=== PATIENT | female | born 1955 | race Caucasian/White ===

== ENCOUNTER 2018-03-25 07:31 | Day surgery (SDC) | payer BC ==
[2018-03-25] MEDS: SOD CHLORIDE 0.9% 500 ML (09:16)
[2018-03-25] MEDS: CLINDAMYCIN 600 MG/D5W (PMX) 50 ML IVPB (10:00)
[2018-03-25] MEDS: SOD CHLORIDE 0.9% 1,000 ML IV (10:00)
[2018-03-25] MEDS: DIPHENHYDRAMINE 50 MG INJ (10:30)
[2018-03-25] MEDS: ONDANSETRON 4 MG INJ (10:30)
[2018-03-25] MEDS: HEPARIN 1000 UNITS/ML 10 ML INJ (10:35)
[2018-03-25] MEDS: LIDOCAINE 1%/EPI 30 ML INJ (10:44)
[2018-03-25] MEDS: FENTAnyl 50 MCG/ML VIAL (10:45)
[2018-03-25] MEDS: MIDAZOLAM 1 MG/ML 2 ML INJ (10:46)
[2018-03-25] MEDS: POLYMYXIN/BACITRACIN 1L IRRIG IRR (11:00)
== END 2018-03-25 14:00 | disposition home or self-care (01) ==
LOC: SDS 07:31
DX: G70.00 Myasthenia gravis without (acute) exacerbation (principal)
CPT/HCPCS: 36561; 76942

== ENCOUNTER 2018-04-08 12:18 | Emergency (ER) | payer BC ==
[2018-04-08] MEDS ORDERED: KETOROLAC 15 MG INJ IV (12:58)
[2018-04-08] MEDS ORDERED: ONDANSETRON 4 MG INJ IV (12:58)
[2018-04-08] MEDS ORDERED: SOD CHLORIDE 0.9% 1,000 ML IV (12:58)
[2018-04-08] MEDS ORDERED: CA CHLORIDE 10% 10 ML SYRINGE (13:21)
[2018-04-08 13:27] LABS: ADD MAN DIFF? NO
[2018-04-08 13:31] LABS: BASOPHILS % 0.4 % (0.0-2.0); EOSINOPHILS # 0.1 10^3/ul (0.0-0.5); EOSINOPHILS % 2.2 % (0.0-7.0); HEMATOCRIT 38.4 % (37.0-47.0); HEMOGLOBIN 12.2 g/dl (12.0-16.0); LYMPHOCYTES % 35.7 % (15.0-51.0); MEAN CORPUSCULAR HEMOGLOBIN 27.2 pg (29.0-33.0); MEAN CORPUSCULAR HGB CONC 31.8 g/dl (32.0-37.0); MEAN CORPUSCULAR VOLUME 85.5 fl (82.0-101.0); MEAN PLATELET VOLUME 10.3 fl (7.4-10.4); MONOCYTE # 0.5 10^3/ul (0.3-0.9); MONOCYTES % 8.2 % (0.0-11.0); NEUTROPHIL # 2.9 10^3/ul (1.6-7.5); NEUTROPHILS % 53.3 % (39.0-77.0); PLATELET COUNT 387 10^3/UL (140-415); RED BLOOD COUNT 4.49 10^6/ul (4.20-5.40); RED CELL DISTRIBUTION WIDTH 15.2 % (11.5-14.5)
[2018-04-08 13:31] LABS: WHITE BLOOD COUNT 5.5 10^3/ul (4.8-10.8)
[2018-04-08 13:36] LABS: ADD UMIC YES; UR ASCORBIC ACID NEGATIVE (NEGATIVE); UR BACTERIA FEW /HPF (NONE SEEN); UR BILIRUBIN (Dip) NEGATIVE (NEGATIVE); UR BLOOD (Dip) 2+ mg/dL (NEGATIVE); UR CLARITY SLIGHTLY CLOUDY (CLEAR); UR COLOR YELLOW (YELLOW); UR GLUCOSE (Dip) NEGATIVE (NEGATIVE); UR KETONES (Dip) NEGATIVE (NEGATIVE); UR LEUKOCYTE ESTERASE (Dip) NEGATIVE Leu/ul (NEGATIVE); UR MUCUS FEW /HPF (NONE SEEN); UR NITRITE (Dip) NEGATIVE (NEGATIVE); UR RBC 3 /HPF (0-5); UR SPECIFIC GRAVITY (Dip) 1.016 (1.003-1.030); UR SQUAMOUS EPITHELIAL CELL FEW /HPF (FEW); UR TOTAL PROTEIN (Dip) NEGATIVE (NEGATIVE); UR UROBILINOGEN (Dip) NEGATIVE (NEGATIVE); UR WBC 2 /HPF (0-5)
[2018-04-08 13:53] LABS: ALANINE AMINOTRANSFERASE 30 IU/L (13-69); ALBUMIN 4.4 g/dl (3.3-4.9); ALBUMIN/GLOBULIN RATIO 1.07; ALKALINE PHOSPHATASE 89 IU/L (42-121); ANION GAP 13 (8-16); ASPARTATE AMINO TRANSFERASE 26 IU/L (15-46); BILIRUBIN,INDIRECT 0.2 mg/dl (0-1.1); BILIRUBIN,TOTAL 0.2 mg/dl (0.2-1.3); BLOOD UREA NITROGEN 10 mg/dl (7-20); CALCIUM 9.1 mg/dl (8.4-10.2); CARBON DIOXIDE 29 mmol/L (21-31); CHLORIDE 103 mmol/L (97-110); CREATININE 0.74 mg/dl (0.44-1.00); GLUCOSE 100 mg/dl (70-220); LIPASE 111 U/L (23-300); POTASSIUM 3.8 mmol/L (3.5-5.1); SODIUM 141 mmol/L (135-144); TOTAL PROTEIN 8.5 g/dl (6.1-8.1)
[2018-04-08] MEDS ORDERED: morphine 4 MG/ML VIAL (14:25)
[2018-04-08] MEDS: CEPHALEXIN 500 MG CAP PO (14:42)
[2018-04-08] MEDS: OXYCODONE/ACETAMINOPHEN (5/325) TAB PO (14:42)
[2018-04-08] MEDS: ONDANSETRON (ODT) 4 MG TAB ODT (14:42)
== END 2018-04-08 16:34 | disposition home or self-care (01) ==
LOC: E/R 12:18
DX: S76.211A Strain of adductor muscle, fascia and tendon of right thigh, initial encounter (principal); K46.9 Unspecified abdominal hernia without obstruction or gangrene; N30.00 Acute cystitis without hematuria; I25.10 Atherosclerotic heart disease of native coronary artery without angina pectoris; X58.XXXA Exposure to other specified factors, initial encounter; Y92.9 Unspecified place or not applicable; Z79.82 Long term (current) use of aspirin; Z87.891 Personal history of nicotine dependence
CPT/HCPCS: 36415; 80053; 81001; 83690; 85025; 87086; 99283-25

== ENCOUNTER 2018-05-20 01:26 | Inpatient (IN) | payer BC ==
[2018-05-20] MEDS ORDERED: NITROGLYCERIN (SL) 0.4 MG TAB SL (04:00)
[2018-05-20] MEDS ORDERED: DOCUSATE SODIUM 250 MG CAP PO (04:00)
[2018-05-20] MEDS: CIPROFLOXACIN 400MG/D5W 200 ML IVPB (04:26)
[2018-05-20] MEDS: SOD CHLORIDE 0.9% 1,000 ML IV ×2 (04:26→17:13)
[2018-05-20] MEDS: PANTOPRAZOLE (EC) 40 MG TAB PO ×2 (05:31→05:32)
[2018-05-20] MEDS: IBUPROFEN 600 MG TAB PO ×5 (05:31→22:29)
[2018-05-20] MEDS: metroNIDAZOLE 500 MG/NS (PMX) 100 ML IVPB ×3 (05:31→22:30)
[2018-05-20 06:33] LABS: ADD MAN DIFF? NO
[2018-05-20 06:42] LABS: BASOPHILS % 0.4 % (0.0-2.0); EOSINOPHILS # 0.4 10^3/ul (0.0-0.5); EOSINOPHILS % 5.6 % (0.0-7.0); HEMATOCRIT 32.6 % (37.0-47.0); HEMOGLOBIN 10.3 g/dl (12.0-16.0); LYMPHOCYTES % 28.4 % (15.0-51.0); MEAN CORPUSCULAR HEMOGLOBIN 27.5 pg (29.0-33.0); MEAN CORPUSCULAR HGB CONC 31.6 g/dl (32.0-37.0); MEAN CORPUSCULAR VOLUME 86.9 fl (82.0-101.0); MEAN PLATELET VOLUME 10.6 fl (7.4-10.4); MONOCYTE # 0.8 10^3/ul (0.3-0.9); MONOCYTES % 11.3 % (0.0-11.0); NEUTROPHIL # 3.8 10^3/ul (1.6-7.5); PLATELET COUNT 297 10^3/UL (140-415); RED BLOOD COUNT 3.75 10^6/ul (4.20-5.40)
[2018-05-20 07:32] LABS: ALANINE AMINOTRANSFERASE 23 IU/L (13-69); ALBUMIN 3.7 g/dl (3.3-4.9); ALKALINE PHOSPHATASE 85 IU/L (42-121); ANION GAP 14 (8-16); ASPARTATE AMINO TRANSFERASE 18 IU/L (15-46); BILIRUBIN,INDIRECT 0.4 mg/dl (0-1.1); BILIRUBIN,TOTAL 0.4 mg/dl (0.2-1.3); BLOOD UREA NITROGEN 12 mg/dl (7-20); CALCIUM 8.7 mg/dl (8.4-10.2); CARBON DIOXIDE 25 mmol/L (21-31); CHLORIDE 105 mmol/L (97-110); CREATININE 0.82 mg/dl (0.44-1.00); GLUCOSE 114 mg/dl (70-220); POTASSIUM 3.8 mmol/L (3.5-5.1); SODIUM 140 mmol/L (135-144); TOTAL PROTEIN 7.4 g/dl (6.1-8.1)
[2018-05-20] MEDS: MYCOPHENOLATE 250 MG CAP PO ×2 (08:10→20:14)
[2018-05-20] MEDS: BUPROPION (XL) 150 MG TAB PO (08:10)
[2018-05-20] MEDS: METOPROLOL (XL) 25 MG TAB PO ×2 (08:11→20:14)
[2018-05-20] MEDS: VENLAFAXINE (XR) 75 MG CAP PO (08:30)
[2018-05-20] MEDS: NON-FORMULARY/PATIENT OWN MED (Linaclotide (Linzess) 145 MCG) XX (13:53)
[2018-05-20] MEDS: morphine 2 MG INJ IV (16:10)
[2018-05-20] MEDS: ATORVASTATIN 20 MG TAB PO (20:14)
[2018-05-20] MEDS: TAMSULOSIN (SR) 0.4 MG CAP PO (20:14)
[2018-05-20] MEDS: ZOLPIDEM 5 MG TAB PO (22:36)
[2018-05-21] MEDS: CIPROFLOXACIN 400MG/D5W 200 ML IVPB (03:38)
[2018-05-21] MEDS: IBUPROFEN 600 MG TAB PO (05:59)
[2018-05-21] MEDS: metroNIDAZOLE 500 MG/NS (PMX) 100 ML IVPB ×3 (06:08→21:51)
[2018-05-21] MEDS: PANTOPRAZOLE (EC) 40 MG TAB PO (06:08)
[2018-05-21 06:13] LABS: ADD MAN DIFF? NO
[2018-05-21 06:21] LABS: WHITE BLOOD COUNT 5.4 10^3/ul (4.8-10.8)
[2018-05-21 06:21] LABS: BASOPHILS % 0.4 % (0.0-2.0); EOSINOPHILS # 0.3 10^3/ul (0.0-0.5); EOSINOPHILS % 6.1 % (0.0-7.0); HEMATOCRIT 30.3 % (37.0-47.0); HEMOGLOBIN 9.7 g/dl (12.0-16.0); LYMPHOCYTES # 1.8 10^3/ul (0.8-2.9); LYMPHOCYTES % 33.7 % (15.0-51.0); MEAN CORPUSCULAR HEMOGLOBIN 27.6 pg (29.0-33.0); MEAN CORPUSCULAR VOLUME 86.1 fl (82.0-101.0); MEAN PLATELET VOLUME 10.4 fl (7.4-10.4); MONOCYTE # 0.5 10^3/ul (0.3-0.9); MONOCYTES % 8.9 % (0.0-11.0); NEUTROPHIL # 2.7 10^3/ul (1.6-7.5); NEUTROPHILS % 50.7 % (39.0-77.0); PLATELET COUNT 283 10^3/UL (140-415); RED BLOOD COUNT 3.52 10^6/ul (4.20-5.40)
[2018-05-21] MEDS: SOD CHLORIDE 0.9% 1,000 ML IV ×2 (06:40→13:15)
[2018-05-21 06:54] LABS: ANION GAP 13 (8-16); BLOOD UREA NITROGEN 11 mg/dl (7-20); CALCIUM 8.5 mg/dl (8.4-10.2); CARBON DIOXIDE 26 mmol/L (21-31); CHLORIDE 107 mmol/L (97-110); CREATININE 0.73 mg/dl (0.44-1.00); GLUCOSE 88 mg/dl (70-220); POTASSIUM 3.5 mmol/L (3.5-5.1); SODIUM 142 mmol/L (135-144)
[2018-05-21 07:21] LABS: ADD UMIC YES; UR ASCORBIC ACID NEGATIVE (NEGATIVE); UR BACTERIA FEW /HPF (NONE SEEN); UR BILIRUBIN (Dip) NEGATIVE (NEGATIVE); UR BLOOD (Dip) 1+ mg/dL (NEGATIVE); UR CLARITY SLIGHTLY CLOUDY (CLEAR); UR COLOR YELLOW (YELLOW); UR GLUCOSE (Dip) NEGATIVE (NEGATIVE); UR KETONES (Dip) TRACE mg/dL (NEGATIVE); UR LEUKOCYTE ESTERASE (Dip) 1+ Leu/ul (NEGATIVE); UR MUCUS FEW /HPF (NONE SEEN); UR NITRITE (Dip) NEGATIVE (NEGATIVE); UR RBC 5 /HPF (0-5); UR SPECIFIC GRAVITY (Dip) 1.023 (1.003-1.030); UR SQUAMOUS EPITHELIAL CELL FEW /HPF (FEW); UR TOTAL PROTEIN (Dip) NEGATIVE (NEGATIVE); UR UROBILINOGEN (Dip) NEGATIVE (NEGATIVE); UR WBC 5 /HPF (0-5)
[2018-05-21] MEDS: MYCOPHENOLATE 250 MG CAP PO ×2 (08:32→21:53)
[2018-05-21] MEDS: BUPROPION (XL) 150 MG TAB PO (08:32)
[2018-05-21] MEDS: VENLAFAXINE (XR) 75 MG CAP PO (08:33)
[2018-05-21] MEDS: METOPROLOL (XL) 25 MG TAB PO ×2 (08:33→22:00)
[2018-05-21] MEDS: LINACLOTIDE 145 MG PO (10:56)
[2018-05-21] MEDS: ACETAMINOPHEN 325 MG TAB PO (14:30)
[2018-05-21] MEDS: TAMSULOSIN (SR) 0.4 MG CAP PO (21:51)
[2018-05-21] MEDS: ATORVASTATIN 20 MG TAB PO (21:51)
[2018-05-21] MEDS ORDERED: morphine LIQ (10 MG/5 ML) CUP PO (22:00)
[2018-05-21] MEDS: DIPHENHYDRAMINE 50 MG INJ IV (22:58)
[2018-05-21] MEDS: ZOLPIDEM 5 MG TAB PO (23:07)
[2018-05-21] MEDS: PATIENT'S OWN MEDICATION PO (23:11)
[2018-05-22] MEDS: HYDROCODONE/APAP (5/325) TAB PO ×2 (00:18→11:43)
[2018-05-22] MEDS: CIPROFLOXACIN 400MG/D5W 200 ML IVPB (04:35)
[2018-05-22] MEDS: SOD CHLORIDE 0.9% 1,000 ML IV ×3 (04:35→21:55)
[2018-05-22] MEDS: metroNIDAZOLE 500 MG/NS (PMX) 100 ML IVPB ×3 (06:05→21:53)
[2018-05-22] MEDS: PANTOPRAZOLE (EC) 40 MG TAB PO (06:05)
[2018-05-22] MEDS: MYCOPHENOLATE 250 MG CAP PO ×2 (08:44→21:52)
[2018-05-22] MEDS: VENLAFAXINE (XR) 75 MG CAP PO (08:44)
[2018-05-22] MEDS: PATIENT'S OWN MEDICATION PO ×2 (08:44→21:53)
[2018-05-22] MEDS: BUPROPION (XL) 150 MG TAB PO (08:44)
[2018-05-22] MEDS: METOPROLOL (XL) 25 MG TAB PO ×2 (08:45→21:53)
[2018-05-22 14:24] LABS: ADD UMIC YES; UR ASCORBIC ACID NEGATIVE (NEGATIVE); UR BACTERIA FEW /HPF (NONE SEEN); UR BILIRUBIN (Dip) NEGATIVE (NEGATIVE); UR BLOOD (Dip) 1+ mg/dL (NEGATIVE); UR CLARITY CLEAR (CLEAR); UR COLOR YELLOW (YELLOW); UR GLUCOSE (Dip) NEGATIVE (NEGATIVE); UR KETONES (Dip) NEGATIVE (NEGATIVE); UR LEUKOCYTE ESTERASE (Dip) 1+ Leu/ul (NEGATIVE); UR NITRITE (Dip) NEGATIVE (NEGATIVE); UR RBC 2 /HPF (0-5); UR SPECIFIC GRAVITY (Dip) 1.011 (1.003-1.030); UR SQUAMOUS EPITHELIAL CELL FEW /HPF (FEW); UR TOTAL PROTEIN (Dip) NEGATIVE (NEGATIVE); UR UROBILINOGEN (Dip) NEGATIVE (NEGATIVE); UR WBC 3 /HPF (0-5)
[2018-05-22] MEDS: ATORVASTATIN 20 MG TAB PO (21:52)
[2018-05-22] MEDS: TAMSULOSIN (SR) 0.4 MG CAP PO (21:52)
[2018-05-23] MEDS: CIPROFLOXACIN 400MG/D5W 200 ML IVPB (04:09)
[2018-05-23] MEDS: metroNIDAZOLE 500 MG/NS (PMX) 100 ML IVPB ×3 (05:50→21:19)
[2018-05-23] MEDS: PANTOPRAZOLE (EC) 40 MG TAB PO (05:50)
[2018-05-23] MEDS: HYDROCODONE/APAP (5/325) TAB PO (05:52)
[2018-05-23 06:05] LABS: ADD MAN DIFF? NO
[2018-05-23 06:18] LABS: WHITE BLOOD COUNT 4.5 10^3/ul (4.8-10.8)
[2018-05-23 06:18] LABS: BASOPHILS % 0.4 % (0.0-2.0); EOSINOPHILS # 0.3 10^3/ul (0.0-0.5); EOSINOPHILS % 6.5 % (0.0-7.0); HEMATOCRIT 31.5 % (37.0-47.0); HEMOGLOBIN 10.1 g/dl (12.0-16.0); LYMPHOCYTES # 1.7 10^3/ul (0.8-2.9); LYMPHOCYTES % 37.3 % (15.0-51.0); MEAN CORPUSCULAR HEMOGLOBIN 27.3 pg (29.0-33.0); MEAN CORPUSCULAR HGB CONC 32.1 g/dl (32.0-37.0); MEAN CORPUSCULAR VOLUME 85.1 fl (82.0-101.0); MEAN PLATELET VOLUME 10.9 fl (7.4-10.4); MONOCYTE # 0.6 10^3/ul (0.3-0.9); MONOCYTES % 12.6 % (0.0-11.0); NEUTROPHIL # 1.9 10^3/ul (1.6-7.5); PLATELET COUNT 340 10^3/UL (140-415); RED CELL DISTRIBUTION WIDTH 14.6 % (11.5-14.5)
[2018-05-23] MEDS: PATIENT'S OWN MEDICATION PO ×2 (09:00→22:04)
[2018-05-23] MEDS: VENLAFAXINE (XR) 75 MG CAP PO (09:47)
[2018-05-23] MEDS: MYCOPHENOLATE 250 MG CAP PO ×2 (09:47→21:09)
[2018-05-23] MEDS: BUPROPION (XL) 150 MG TAB PO (09:48)
[2018-05-23] MEDS: METOPROLOL (XL) 25 MG TAB PO ×2 (09:48→21:10)
[2018-05-23] MEDS: SOD CHLORIDE 0.9% 1,000 ML IV ×2 (12:00→13:32)
[2018-05-23] MEDS: ATORVASTATIN 20 MG TAB PO (21:10)
[2018-05-23] MEDS: TAMSULOSIN (SR) 0.4 MG CAP PO (21:10)
[2018-05-23] MEDS: ZOLPIDEM 5 MG TAB PO (21:25)
[2018-05-24] MEDS: SOD CHLORIDE 0.9% 1,000 ML IV ×2 (01:17→15:26)
[2018-05-24] MEDS: CIPROFLOXACIN 400MG/D5W 200 ML IVPB (04:20)
[2018-05-24] MEDS: PANTOPRAZOLE (EC) 40 MG TAB PO (05:21)
[2018-05-24] MEDS: metroNIDAZOLE 500 MG/NS (PMX) 100 ML IVPB ×3 (05:22→21:08)
[2018-05-24 05:46] LABS: ADD MAN DIFF? NO
[2018-05-24 05:54] LABS: WHITE BLOOD COUNT 4.7 10^3/ul (4.8-10.8)
[2018-05-24 05:54] LABS: BASOPHILS % 0.6 % (0.0-2.0); EOSINOPHILS # 0.3 10^3/ul (0.0-0.5); EOSINOPHILS % 5.6 % (0.0-7.0); HEMATOCRIT 32.1 % (37.0-47.0); HEMOGLOBIN 10.3 g/dl (12.0-16.0); LYMPHOCYTES # 2.1 10^3/ul (0.8-2.9); MEAN CORPUSCULAR HEMOGLOBIN 27.3 pg (29.0-33.0); MEAN CORPUSCULAR HGB CONC 32.1 g/dl (32.0-37.0); MEAN CORPUSCULAR VOLUME 85.1 fl (82.0-101.0); MEAN PLATELET VOLUME 10.7 fl (7.4-10.4); MONOCYTE # 0.6 10^3/ul (0.3-0.9); MONOCYTES % 12.2 % (0.0-11.0); NEUTROPHIL # 1.7 10^3/ul (1.6-7.5); NEUTROPHILS % 37.4 % (39.0-77.0); PLATELET COUNT 352 10^3/UL (140-415); RED BLOOD COUNT 3.77 10^6/ul (4.20-5.40); RED CELL DISTRIBUTION WIDTH 14.7 % (11.5-14.5)
[2018-05-24 06:36] LABS: ANION GAP 11 (8-16); BLOOD UREA NITROGEN 7 mg/dl (7-20); CALCIUM 8.8 mg/dl (8.4-10.2); CARBON DIOXIDE 26 mmol/L (21-31); CHLORIDE 109 mmol/L (97-110); GLUCOSE 113 mg/dl (70-220); POTASSIUM 3.3 mmol/L (3.5-5.1); SODIUM 143 mmol/L (135-144)
[2018-05-24] MEDS: BUPROPION (XL) 150 MG TAB PO (09:49)
[2018-05-24] MEDS: VENLAFAXINE (XR) 75 MG CAP PO (09:49)
[2018-05-24] MEDS: MYCOPHENOLATE 250 MG CAP PO ×2 (09:49→21:08)
[2018-05-24] MEDS: METOPROLOL (XL) 25 MG TAB PO ×2 (09:50→21:09)
[2018-05-24] MEDS: POTASSIUM CHLORIDE (SR) 20 MEQ TAB PO (17:27)
[2018-05-24] MEDS: TAMSULOSIN (SR) 0.4 MG CAP PO (21:08)
[2018-05-24] MEDS: ZOLPIDEM 5 MG TAB PO (21:08)
[2018-05-24] MEDS: ATORVASTATIN 20 MG TAB PO (21:08)
[2018-05-24] MEDS: PATIENT'S OWN MEDICATION PO (21:09)
[2018-05-25] MEDS: CIPROFLOXACIN 400MG/D5W 200 ML IVPB (03:45)
[2018-05-25] MEDS: SOD CHLORIDE 0.9% 1,000 ML IV ×2 (04:00→11:12)
[2018-05-25] MEDS: metroNIDAZOLE 500 MG/NS (PMX) 100 ML IVPB ×2 (05:31→14:20)
[2018-05-25] MEDS: PANTOPRAZOLE (EC) 40 MG TAB PO (05:31)
[2018-05-25 06:58] LABS: ALANINE AMINOTRANSFERASE 32 IU/L (13-69); ALBUMIN 3.5 g/dl (3.3-4.9); ALBUMIN/GLOBULIN RATIO 1.12; ALKALINE PHOSPHATASE 63 IU/L (42-121); ANION GAP 14 (8-16); ASPARTATE AMINO TRANSFERASE 35 IU/L (15-46); BILIRUBIN,INDIRECT 0.1 mg/dl (0-1.1); BILIRUBIN,TOTAL 0.1 mg/dl (0.2-1.3); BLOOD UREA NITROGEN 10 mg/dl (7-20); CALCIUM 8.9 mg/dl (8.4-10.2); CARBON DIOXIDE 28 mmol/L (21-31); CHLORIDE 103 mmol/L (97-110); CREATININE 0.71 mg/dl (0.44-1.00); GLUCOSE 102 mg/dl (70-220); POTASSIUM 3.4 mmol/L (3.5-5.1); SODIUM 142 mmol/L (135-144); TOTAL PROTEIN 6.6 g/dl (6.1-8.1)
[2018-05-25] MEDS: METOPROLOL (XL) 25 MG TAB PO (08:49)
[2018-05-25] MEDS: MYCOPHENOLATE 250 MG CAP PO (08:49)
[2018-05-25] MEDS: VENLAFAXINE (XR) 75 MG CAP PO (08:50)
[2018-05-25] MEDS: BUPROPION (XL) 150 MG TAB PO (08:50)
[2018-05-25] MEDS: POTASSIUM CHLORIDE (SR) 20 MEQ TAB PO (12:10)
== END 2018-05-25 18:25 | disposition home or self-care (01) | DRG 392 ==
LOC: MS3 01:26 → PP2 20:39
DX: K57.32 Diverticulitis of large intestine without perforation or abscess without bleeding (principal); G70.00 Myasthenia gravis without (acute) exacerbation; R33.9 Retention of urine, unspecified; E66.9 Obesity, unspecified; Z68.35 Body mass index [BMI] 35.0-35.9, adult; I10 Essential (primary) hypertension; E78.5 Hyperlipidemia, unspecified; F32.9 Major depressive disorder, single episode, unspecified; K44.9 Diaphragmatic hernia without obstruction or gangrene; E87.6 Hypokalemia; Z79.82 Long term (current) use of aspirin
CPT/HCPCS: 80048; 80053; 81001; 85025; 87086

== ENCOUNTER 2018-06-07 15:48 | Emergency (ER) | payer BC ==
[2018-06-07] MEDS: OXYCODONE/ACETAMINOPHEN (5/325) TAB PO (17:11)
[2018-06-07 17:18] LABS: URINE PH (Dip) POC 5.5 (5.0-8.5)
[2018-06-07 17:18] LABS: URINE BLOOD (Dip) POC 2+ (NEGATIVE); URINE GLUCOSE (Dip) POC Negative (NEGATIVE); URINE KETONES (Dip) POC Trace (NEGATIVE); URINE LEUKOCYTE EST (Dip) POC 1+ (NEGATIVE); URINE NITRITE (Dip) POC Negative (NEGATIVE); URINE TOTAL PROTEIN POC Negative (NEGATIVE)
== END 2018-06-07 18:21 | disposition home or self-care (01) ==
LOC: E/R 15:48
DX: M54.16 Radiculopathy, lumbar region (principal); Z79.82 Long term (current) use of aspirin
CPT/HCPCS: 81003; 99283

== ENCOUNTER 2018-08-26 09:22 | Day surgery (SDC) | payer BC ==
[~2018-08-26 09:22] MED LIST: VANCOMYCIN 2 GM in SOD CHLORIDE 0.9% 500 ML IVPB
[2018-08-26 10:28] LABS: ADD MAN DIFF? NO
[2018-08-26 10:32] LABS: BASOPHILS % 0.4 % (0.0-2.0); EOSINOPHILS # 0.2 10^3/ul (0.0-0.5); EOSINOPHILS % 4.5 % (0.0-7.0); HEMATOCRIT 34.1 % (37.0-47.0); HEMOGLOBIN 10.9 g/dl (12.0-16.0); LYMPHOCYTES % 41.4 % (15.0-51.0); MEAN CORPUSCULAR HEMOGLOBIN 27.3 pg (29.0-33.0); MEAN CORPUSCULAR VOLUME 85.3 fl (82.0-101.0); MEAN PLATELET VOLUME 10.4 fl (7.4-10.4); MONOCYTE # 0.5 10^3/ul (0.3-0.9); MONOCYTES % 9.5 % (0.0-11.0); NEUTROPHIL # 2.1 10^3/ul (1.6-7.5); PLATELET COUNT 313 10^3/UL (140-415); RED CELL DISTRIBUTION WIDTH 14.8 % (11.5-14.5)
[2018-08-26 10:32] LABS: WHITE BLOOD COUNT 4.9 10^3/ul (4.8-10.8)
[2018-08-26 10:50] LABS: ALANINE AMINOTRANSFERASE 28 IU/L (13-69); ALBUMIN 3.4 g/dl (3.3-4.9); ALBUMIN/GLOBULIN RATIO 0.87; ALKALINE PHOSPHATASE 77 IU/L (42-121); ANION GAP 12 (8-16); ASPARTATE AMINO TRANSFERASE 23 IU/L (15-46); BILIRUBIN,INDIRECT 0.3 mg/dl (0-1.1); BILIRUBIN,TOTAL 0.3 mg/dl (0.2-1.3); BLOOD UREA NITROGEN 12 mg/dl (7-20); CALCIUM 9.5 mg/dl (8.4-10.2); CARBON DIOXIDE 29 mmol/L (21-31); CHLORIDE 104 mmol/L (97-110); CREATININE 0.73 mg/dl (0.44-1.00); GLUCOSE 105 mg/dl (70-220); POTASSIUM 3.7 mmol/L (3.5-5.1); SODIUM 141 mmol/L (135-144); TOTAL PROTEIN 7.3 g/dl (6.1-8.1)
[2018-08-26 10:52] LABS: INR 0.86; PROTIME 11.8 Sec (11.9-14.9); PT RATIO 0.9
[2018-08-26 11:00] LABS: PARTIAL THROMBOPLASTIN TIME 24.6 Sec (23.0-35.0)
[2018-08-26] MEDS ORDERED: VANCOMYCIN 1 GM (PMX) 250 ML (11:13)
[2018-08-26] MEDS: VANCOMYCIN 2 GM in SOD CHLORIDE 0.9% 500 ML IVPB ×2 (11:15→11:31)
[2018-08-26] MEDS: SOD CHLORIDE 0.9% 1,000 ML IV (11:32)
[2018-08-26] MEDS ORDERED: VANCOMYCIN 1 GM (PMX) 250 ML IVPB (12:00)
[2018-08-26] MEDS ORDERED: LIDOCAINE 3.5% GEL TUBE (12:41)
== END 2018-08-26 13:00 | disposition home or self-care (01) ==
LOC: SDS 09:22
DX: K42.9 Umbilical hernia without obstruction or gangrene (principal); Z53.9 Procedure and treatment not carried out, unspecified reason
CPT/HCPCS: 71045; 80053; 85025; 85610; 85730; 93005

== ENCOUNTER 2019-06-16 13:05 | Emergency (ER) | payer BC ==
[2019-06-16] MEDS: ALTEPLASE (CATHFLO) 2 MG INJ CATHETER (18:00)
== END 2019-06-16 19:43 | disposition home or self-care (01) ==
LOC: E/R 13:05
DX: T82.848A Pain due to vascular prosthetic devices, implants and grafts, initial encounter (principal); I10 Essential (primary) hypertension; Y71.2 Prosthetic and other implants, materials and accessory cardiovascular devices associated with adverse incidents; Z79.01 Long term (current) use of anticoagulants
CPT/HCPCS: 71045; 99283-25

== ENCOUNTER 2019-07-15 09:28 | Day surgery (SDC) | payer BC ==
[2019-07-15] MEDS ORDERED: SOD CHLORIDE 0.9% 1,000 ML IV (11:00)
[2019-07-15] MEDS ORDERED: POLYMYXIN/BACITRACIN 1L IRRIG (11:33)
[2019-07-15] MEDS ORDERED: MIDAZOLAM 1 MG/ML 2 ML INJ (11:49)
[2019-07-15] MEDS ORDERED: LIDOCAINE 1% (MDV) 20 ML INJ ×2 (11:49→12:38)
[2019-07-15] MEDS ORDERED: FENTAnyl 50 MCG/ML VIAL ×2 (11:49→12:21)
[2019-07-15] MEDS ORDERED: CEFAZOLIN 1 GM/50 ML (PMX) 0 ML IVPB (11:49)
[2019-07-15] MEDS ORDERED: HEPARIN 1000 UNITS/ML 10 ML INJ (11:49)
[2019-07-15] MEDS ORDERED: CEFAZOLIN 2 GM/50 ML (PMX) 50 ML IVPB (12:01)
[2019-07-15] MEDS: HYDROCODONE/APAP (5/325) TAB PO (14:21)
== END 2019-07-15 15:15 | disposition home or self-care (01) ==
LOC: CCL 09:28 → SDS 09:32 → CCL 15:15
DX: Z45.2 Encounter for adjustment and management of vascular access device (principal); G70.00 Myasthenia gravis without (acute) exacerbation
CPT/HCPCS: 36590